=== PATIENT | male | born 1980 | race Hispanic/Latino ===

== ENCOUNTER 2018-12-05 19:13 | Inpatient (IN) | payer OTHER ==
[~2018-12-05] VITALS: Ht 175.3 cm; Wt 112.9 kg
[~2018-12-05 19:13] MED LIST: TYL3 PO
[2018-12-05 20:11] LABS: BASOPHILS % (AUTO) 0.6 % (0.0-5.0); EOSINOPHILS % (AUTO) 0.7 % (0.0-8.0); HEMATOCRIT 37.3 % (42-54); LYMPHOCYTES % (AUTO) 12.8 % (21.0-51.0); MEAN CORPUSCULAR HGB CONC 34.7 g/dL (32.0-36.0); MEAN CORPUSCULAR VOLUME 89.2 fL (79-99); MONOCYTES % (AUTO) 6.8 % (3.0-13.0); NEUTROPHILS % (AUTO) 79.1 % (40.0-77.0); PLATELET COUNT (AUTO) 206 K/uL (130-400); RED BLOOD CELL COUNT(AUTO) 4.18 MIL/uL (4.50-6.20); RED CELL DISTRIBUTION WIDTH 14.4 % (11.0-15.5); WHITE BLOOD COUNT (AUTO) 15.3 K/uL (4.8-10.8)
[2018-12-05 20:22] LABS: POTASSIUM 3.4 mmol/L (3.5-5.1)
[2018-12-05 20:23] LABS: INR 0.99 (0.85-1.15); PARTIAL THROMBOPLASTIN TIME 28.3 SEC (26.3-35.5); PROTHROMBIN TIME 10.4 SEC (9.6-11.6)
[2018-12-05 20:32] LABS: ALBUMIN 3.7 g/dL (3.5-5.0); BILIRUBIN,TOTAL 1.5 mg/dL (0.2-1.0); TOTAL PROTEIN, SERUM 8.3 g/dL (6.0-8.3)
[2018-12-05] MEDS ORDERED: SODIUM CHLORIDE 0.9% 1000ML 1,000 ML IV SCH (21:14)
[2018-12-05] MEDS ORDERED: ONDANSETRON HCL 4 MG/2 ML VIAL IV PRN (21:15)
[2018-12-05] MEDS ORDERED: ACETAMINOPHEN 325 MG TAB PO PRN (21:15)
[2018-12-05] MEDS ORDERED: NITROGLYCERIN 0.4 MG SL TAB SL PRN (21:15)
[2018-12-05] MEDS ORDERED: ACETAMINOPHEN-CODEINE 300/30MG TAB PO PRN (21:15)
[2018-12-05] MEDS ORDERED: POTASSIUM CHLORIDE 20MEQ/100ML 100 ML IV PRN (21:30)
[2018-12-05] MEDS ORDERED: LIDOCAINE HCL-MPF 1% 2ML VIAL IVP PRN (21:30)
[2018-12-05] MEDS ORDERED: POTASSIUM CHLORIDE 10% ELIXIR 20 MEQ/15 ML UDCUP PO PRN (21:30)
[2018-12-05] MEDS ORDERED: POTASSIUM CHLORIDE 20 MEQ ERTAB PO PRN (21:30)
[2018-12-05 21:44] LABS: APPEARANCE,URINE CLOUDY (CLEAR); BILIRUBIN,URINE NEGATIVE (NEGATIVE); COLOR,URINE YELLOW (YELLOW); GLUCOSE, URINE (UA) 250 mg/dL (NEGATIVE); KETONES,URINE NEGATIVE (NEGATIVE); LEUKOCYTE ESTERASE ,URINE MODERATE (NEGATIVE); NITRATE,URINE NEGATIVE (NEGATIVE); OCCULT BLOOD,URINE MODERATE (NEGATIVE); PROTEIN,URINE 30 mg/dL (NEGATIVE); UROBILINOGEN,URINE 0.2 mg/dL (0.2-1.0)
[2018-12-05 21:51] LABS: BACTERIA,URINE Moderate /HPF (None Seen); WBC,URINE 26-50 /HPF (0-1)
[2018-12-05 21:52] LABS: SQUAMOUS EPITHELIAL CELL,UR Rare /HPF (0-2)
[2018-12-05] MEDS ORDERED: POTASSIUM CHLORIDE 20 MEQ ERTAB PO ONE (22:13)
[2018-12-05] MEDS ORDERED: ACETAMINOPHEN-CODEINE 300/30MG TAB ONE (22:23)
[2018-12-05] MEDS ORDERED: NITROGLYCERIN 0.4 MG SL TAB SL ONE (22:49)
[2018-12-05 23:00] VITALS: BP 144/74
--- NOTE | 2018-12-05 23:04 | NUR ---
NOTE PATIENT ARRIVED FROM ED. SPOUSE ACCOMPANYING.
[2018-12-05 23:15] LABS: CREATINE KINASE, TOTAL 181 U/L (21-232); MYOGLOBIN 117 ng/mL (10-92); TROPONIN I < 0.04 ng/mL (0.00-0.06)
[2018-12-05] MEDS: MORPHINE SULFATE 2 MG/ML 1ML SYG IV PRN (23:30)
[2018-12-06] MEDS ORDERED: ASPI-1181 PO (00:04)
[2018-12-06] MEDS ORDERED: CARV12.511 PO (00:04)
[2018-12-06] MEDS ORDERED: TYL3B PO (00:08)
[2018-12-06] MEDS ORDERED: FURO20TA4 PO (00:08)
[2018-12-06] MEDS ORDERED: LOSA50TA64 PO (00:08)
[2018-12-06] MEDS ORDERED: SPIR25TA6 PO (00:08)
[2018-12-06] MEDS ORDERED: SIMV20TA6 PO (00:10)
[2018-12-06] MEDS ORDERED: TAMS-1 PO (00:10)
[2018-12-06] MEDS ORDERED: METFORMIN (00:12)
[2018-12-06] MEDS ORDERED: ACETAMINOPHEN-CODEINE 300/30MG TAB PO PRN (00:45)
--- NOTE | 2018-12-06 00:45 | NUR ---
NOTE NOTIFIED Heydi TORRESP OF HOME MEDS LIST READY FOR REVIEW AND PATIENT BEING DIABETIC, BUT HAS NOT TAKEN METFORMIN FOR A LONG WHILE.
[2018-12-06 04:00] VITALS: BP 136/68
[2018-12-06 04:39] LABS: BASOPHILS % (AUTO) 0.4 % (0.0-5.0); EOSINOPHILS % (AUTO) 0.7 % (0.0-8.0); HEMATOCRIT 36.5 % (42-54); LYMPHOCYTES % (AUTO) 17.8 % (21.0-51.0); MEAN CORPUSCULAR HGB CONC 35.1 g/dL (32.0-36.0); MEAN CORPUSCULAR VOLUME 91.2 fL (79-99); MONOCYTES % (AUTO) 9.3 % (3.0-13.0); NEUTROPHILS % (AUTO) 71.8 % (40.0-77.0); PLATELET COUNT (AUTO) 166 K/uL (130-400); RED CELL DISTRIBUTION WIDTH 14.4 % (11.0-15.5); WHITE BLOOD COUNT (AUTO) 12.4 K/uL (4.8-10.8)
[2018-12-06 05:17] LABS: CREATINE KINASE, TOTAL 144 U/L (21-232); MYOGLOBIN 70 ng/mL (10-92); TROPONIN I < 0.04 ng/mL (0.00-0.06)
[2018-12-06 07:24] VITALS: BP 133/84
--- NOTE | 2018-12-06 08:28 | NUR ---
ANA PEREZ MD REGARDING CONSULT. AWAITING CALLBACK.
[2018-12-06] MEDS: FUROSEMIDE 20 MG TABLET PO SCH (09:47)
[2018-12-06] MEDS: TAMSULOSIN HCL 0.4 MG CAP.ER.24H PO SCH (09:47)
[2018-12-06] MEDS: LOSARTAN 50 MG TABLET PO SCH (09:47)
[2018-12-06] MEDS: SPIRONOLACTONE 25 MG TAB PO SCH (09:47)
[2018-12-06] MEDS: FAMOTIDINE 20MG TAB 20 MG TAB PO SCH ×2 (09:48→19:48)
[2018-12-06] MEDS: ENOXAPARIN SODIUM 30 MG/0.3 ML SQ SCH (09:48)
[2018-12-06] MEDS: CARVEDILOL 12.5 MG TABLET PO SCH ×2 (09:48→19:48)
[2018-12-06] MEDS: ASPIRIN 81 MG EC TAB PO SCH (09:48)
--- NOTE | 2018-12-06 11:14 | NUR ---
[facility] CM met with pt and spouse discussed dc plans. Pt is independent, lives at home with spouse and children. Denies any equipments/services. Pt feels safe to go back home, still drives, spouse able to assist with transportation and needs as necessary. Pt is a self pay, [employer] assisting. DC plan to home once stable. CM to cont to follow up. Addendum: 12/06/18 at 1115 by ISAÍAS CHAVEZ LVN CM Amended: Links added.
[2018-12-06] MEDS ORDERED: CEFTRIAXONE SODIUM 500 MG VIAL IV SCH (11:15)
[2018-12-06 11:25] LABS: ALANINE AMINOTRANSFERASE 32 U/L (12-78); ALBUMIN 3.5 g/dL (3.5-5.0); ASPARTATE AMINOTRANSFERASE 19 U/L (10-37); BILIRUBIN,TOTAL 1.6 mg/dL (0.2-1.0); CARBON DIOXIDE 28 mmol/L (21-32); CHLORIDE 97 mmol/L (101-111); CREATINE KINASE, TOTAL 176 U/L (21-232); CREATININE 1.1 mg/dL (0.5-1.5); GLOMERULAR FILTR. RATE CALC 79 mL/min (>60); GLUCOSE,RANDOM 300 mg/dL (70-105); MYOGLOBIN 89 ng/mL (10-92); POTASSIUM 4.7 mmol/L (3.5-5.1); SODIUM SERUM 131 mmol/L (136-145); TOTAL PROTEIN, SERUM 7.8 g/dL (6.0-8.3); TROPONIN I < 0.04 ng/mL (0.00-0.06); UREA NITROGEN, BLOOD 17 mg/dL (7-18)
[2018-12-06] MEDS ORDERED: GLUCAGON 1MG KIT 1 MG ML IM PRN (11:45)
[2018-12-06] MEDS ORDERED: DEXTROSE 50%-WATER 50 ML DISP.SYRIN IV PRN (11:45)
[2018-12-06 11:55] VITALS: BP 134/78
--- NOTE | 2018-12-06 12:00 | NUR ---
DR. BONILLA SPOKE TO MD VIA TELEPHONE, MD AWARE OF CONSULT.
[2018-12-06] MEDS ORDERED: CEFTRIAXONE SODIUM 1 GM ONE (12:09)
[2018-12-06] MEDS ORDERED: INSULIN HUMULIN R 100 UNIT/ML 3ML ONE (12:10)
--- NOTE | 2018-12-06 12:30 | NUR ---
CARDIOLOGY CONSULT PAGED [facility] DR. HOWARD DILL REGARDING CONSULT. CALLED [facility]IN[facility] TO PAGE MD REGARDING CONSULT.
--- NOTE | 2018-12-06 14:15 | NUR ---
MD HERE TO SEE PATIENT. DR. BONILLA REPORTS THAT PATIENT WILL NEED PROCEDURE FOR KIDNEY STONE REMOVAL BUT PATIENT NEEDS CARDIAC CLEARANCE FIRST. DR. BONILLA REPORTS THAT PATIENTS CARDIAC STATUS NEEDS TO BE EVALUATED AND NO UROLOGY PROCEDURES WILL BE DONE UNLESS PATIENT "BECOMES SEPTIC." DR. BONILLA SPOKE TO RON GILLILAND FROM HEART CLINIC REGARDING PATIENT STATUS.
--- NOTE | 2018-12-06 14:30 | NUR ---
DR. HOWARD DILL MD HERE TO SEE PATIENT. INFORMED MD THAT DR. BONILLA NEEDS CARDIAC CLEARANCE FOR ANY PLANNED PROCEDURE. DR. HOWARD DILL REPLIED THAT DR. GUZMAN WOULD BE HERE TOMORROW 12/07/18. PATIENT SEES DR. GUZMAN AN OUTPATIENT.
[2018-12-06 16:09] VITALS: BP 126/80
[2018-12-06] MEDS: INSULIN HUMULIN R 100 UNIT/ML 3ML SQ SCH ×2 (17:17→21:21)
[2018-12-06] MEDS: SIMVASTATIN 20 MG TABLET PO SCH (19:48)
[2018-12-06 20:00] VITALS: BP 146/70
[2018-12-06] MEDS: MORPHINE SULFATE 2 MG/ML 1ML SYG IV PRN (21:14)
[2018-12-07] VITALS (10 sets, daily range): BP systolic 114–148; BP diastolic 67–99
[2018-12-07 04:26] LABS: HEMATOCRIT 37.5 % (42-54); MEAN CORPUSCULAR HEMOGLOBIN 31.4 pg (27.0-33.0); MEAN CORPUSCULAR HGB CONC 34.6 g/dL (32.0-36.0); MEAN CORPUSCULAR VOLUME 90.8 fL (79-99); PLATELET COUNT (AUTO) 206 K/uL (130-400); RED BLOOD CELL COUNT(AUTO) 4.12 MIL/uL (4.50-6.20); RED CELL DISTRIBUTION WIDTH 14.8 % (11.0-15.5); WHITE BLOOD COUNT (AUTO) 8.3 K/uL (4.8-10.8)
[2018-12-07 04:34] LABS: CREATININE 0.9 mg/dL (0.5-1.5); POTASSIUM 4.1 mmol/L (3.5-5.1)
[2018-12-07 04:42] LABS: B-TYPE NATRIURETIC PEPTIDE 167 pg/mL (0-100)
[2018-12-07] MEDS: INSULIN HUMULIN R 100 UNIT/ML 3ML SQ SCH ×3 (06:18→16:30)
[2018-12-07] MEDS: ENOXAPARIN SODIUM 30 MG/0.3 ML SQ SCH (09:00)
[2018-12-07] MEDS: FAMOTIDINE 20MG TAB 20 MG TAB PO SCH ×2 (09:00→20:35)
[2018-12-07] MEDS ORDERED: CEFTRIAXONE SODIUM 1 GM IV SCH ×2 (09:00→10:38)
[2018-12-07] MEDS: SPIRONOLACTONE 25 MG TAB PO SCH (09:00)
[2018-12-07] MEDS: FUROSEMIDE 20 MG TABLET PO SCH (09:00)
[2018-12-07] MEDS: ASPIRIN 81 MG EC TAB PO SCH (09:00)
[2018-12-07] MEDS: TAMSULOSIN HCL 0.4 MG CAP.ER.24H PO SCH (09:00)
[2018-12-07] MEDS: LOSARTAN 50 MG TABLET PO SCH (10:27)
[2018-12-07] MEDS: CARVEDILOL 12.5 MG TABLET PO SCH ×2 (10:27→20:36)
[2018-12-07] MEDS ORDERED: REGADENOSON 0.4 MG/5 ML PF SYG IVP SCH (11:15)
--- NOTE | 2018-12-07 15:59 | NUR ---
Nutrition Intervention: Nutrition consult due to pt. on fluid restriction. Pt. admitted with Dx of Chest pain, R/O Kidney Stones. Pt. NPO for procedure. Pt. previously on 2gm Na 75gm CCD diet with 25-75% p.o. intake as noted in EMR. Labs reviewed(Alb 3.5). LBM: 12/05/18. SR-21, elastic. BMI: 37.3, Obesity Grade 2. Pt. educated on Low Sodium Diabetic diet and provided with education material. Pt. verbalized understanding. Recommendations: 1) When feasible, rec. resume 2gm Na 75gm CCD diet. 2) Low Sodium Diabetic diet education given to patient. 3) Continue to monitor pt's nutritional status. 4) Consult RD as nutrition concerns arise. Addendum: 12/07/18 at [address] Amended: Links added.
[2018-12-07] MEDS: SIMVASTATIN 20 MG TABLET PO SCH (20:35)
[2018-12-08 03:25] VITALS: BP 125/65
[2018-12-08] MEDS: INSULIN HUMULIN R 100 UNIT/ML 3ML SQ SCH (06:24)
[2018-12-08 08:00] VITALS: BP 137/64
[2018-12-08] MEDS: TAMSULOSIN HCL 0.4 MG CAP.ER.24H PO SCH (09:21)
[2018-12-08] MEDS: ASPIRIN 81 MG EC TAB PO SCH (09:21)
[2018-12-08] MEDS: CARVEDILOL 12.5 MG TABLET PO SCH (09:21)
[2018-12-08] MEDS: SPIRONOLACTONE 25 MG TAB PO SCH (09:21)
[2018-12-08] MEDS: FAMOTIDINE 20MG TAB 20 MG TAB PO SCH (09:22)
[2018-12-08] MEDS: FUROSEMIDE 20 MG TABLET PO SCH (09:22)
[2018-12-08] MEDS: LOSARTAN 50 MG TABLET PO SCH (09:22)
[2018-12-08] MEDS: ENOXAPARIN SODIUM 30 MG/0.3 ML SQ SCH (09:22)
[2018-12-08 10:57] VITALS: BP 137/71
[2018-12-08 12:06] VITALS: BP 130/74
[2018-12-08] MEDS ORDERED: SULF1TAB42 PO (12:48)
== END 2018-12-08 14:00 | disposition home or self-care (01) | DRG 690 ==
LOC: EDH 19:13 → OBSVTOIN 19:14 → EDHIP 19:14 → 4BH 21:56
PROVIDERS: ADMIT Internal Medicine; ATTEND Internal Medicine
DX: N13.6 Pyonephrosis (principal); E87.1 Hypo-osmolality and hyponatremia; I42.0 Dilated cardiomyopathy; E87.6 Hypokalemia; I11.0 Hypertensive heart disease with heart failure; E11.65 Type 2 diabetes mellitus with hyperglycemia; E78.5 Hyperlipidemia, unspecified; I25.10 Atherosclerotic heart disease of native coronary artery without angina pectoris; I50.9 Heart failure, unspecified; I25.5 Ischemic cardiomyopathy; E66.01 Morbid (severe) obesity due to excess calories; I25.2 Old myocardial infarction; Z79.899 Other long term (current) drug therapy; Z83.3 Family history of diabetes mellitus; Z87.891 Personal history of nicotine dependence; Z95.0 Presence of cardiac pacemaker; Z68.36 Body mass index [BMI] 36.0-36.9, adult
CPT/HCPCS: 36415; 71045; 74176; 78452; 80048; 80053; 81001; 82550; 82948; 83874; 83880; 84484; 85025; 85027; 85610; 85730; 87077; 87088; 87186; 93005; 93017; 93306; 96374; A4218; A9500; G0378; J0696; J1650; J1815; J2785

== ENCOUNTER 2019-05-03 07:22 | Observation (INO) | payer MEDICAID, SELFPAY ==
[2019-05-02 16:08] LABS: BASOPHILS % (AUTO) 0.7 % (0.0-5.0); EOSINOPHILS % (AUTO) 1.6 % (0.0-8.0); HEMATOCRIT 41.4 % (42-54); LYMPHOCYTES % (AUTO) 27.5 % (21.0-51.0); MEAN CORPUSCULAR HEMOGLOBIN 32.9 pg (27.0-33.0); MEAN CORPUSCULAR VOLUME 94.1 fL (79-99); MONOCYTES % (AUTO) 4.9 % (3.0-13.0); NEUTROPHILS % (AUTO) 65.3 % (40.0-77.0); PLATELET COUNT (AUTO) 257 K/uL (130-400); RED CELL DISTRIBUTION WIDTH 13.2 % (11.0-15.5); WHITE BLOOD COUNT (AUTO) 11.2 K/uL (4.8-10.8)
[2019-05-02 16:20] LABS: INR 0.99 (0.85-1.15); PARTIAL THROMBOPLASTIN TIME 27.8 SEC (26.3-35.5); PROTHROMBIN TIME 10.4 SEC (9.6-11.6)
[2019-05-02 16:22] LABS: CREATININE 1.3 mg/dL (0.5-1.5); POTASSIUM 3.8 mmol/L (3.5-5.1)
--- NOTE | 2019-05-02 18:09 | NUR ---
OG DUPREE NOTIFIED DR. FRANCO OF ABNORMAL LABS, NEW ORDERS RECEIVED.
[2019-05-02 18:39] VITALS: BP 139/69
[~2019-05-03] VITALS: Ht 177.8 cm; Wt 120.2 kg
[2019-05-03] VITALS (12 sets, daily range): BP systolic 109–140; BP diastolic 59–81
[~2019-05-03 07:22] MED LIST changes: +ASPI-1181 PO; +CARV12.511 PO; +CEFAZOLIN SODIUM 1 GM VIAL IVP SCH; +FURO20TA4 PO; +LOSA50TA64 PO; +NOVOLIN SQ; +SIMV20TA6 PO; +SPIR25TA6 PO; +TAMS-1 PO; -TYL3 PO
[2019-05-03 07:37] LABS: BASOPHILS % (AUTO) 0.7 % (0.0-5.0); EOSINOPHILS % (AUTO) 2.3 % (0.0-8.0); HEMATOCRIT 43.6 % (42-54); LYMPHOCYTES % (AUTO) 28.1 % (21.0-51.0); MEAN CORPUSCULAR HEMOGLOBIN 33.1 pg (27.0-33.0); MEAN CORPUSCULAR HGB CONC 34.8 g/dL (32.0-36.0); MEAN CORPUSCULAR VOLUME 95.1 fL (79-99); MONOCYTES % (AUTO) 6.3 % (3.0-13.0); NEUTROPHILS % (AUTO) 62.6 % (40.0-77.0); NUCLEATED RED BLOOD CELLS 0.1 % (0.0-0.19); PLATELET COUNT (AUTO) 242 K/uL (130-400); RED BLOOD CELL COUNT(AUTO) 4.58 MIL/uL (4.50-6.20); RED CELL DISTRIBUTION WIDTH 13.1 % (11.0-15.5); WHITE BLOOD COUNT (AUTO) 9.2 K/uL (4.8-10.8)
[2019-05-03] MEDS: SODIUM CHLORIDE 0.9% 1000ML 1,000 ML IV SCH ×2 (07:56→15:46)
[2019-05-03] MEDS ORDERED: MIDAZOLAM HCL 1 MG/ML 2ML VIAL ONE ×4 (08:42→10:11)
[2019-05-03] MEDS ORDERED: MEPERIDINE-PF 25 MG/ML SYG ONE ×5 (08:42→10:29)
[2019-05-03] MEDS ORDERED: CEFAZOLIN SODIUM 1 GM VIAL ONE (08:42)
[2019-05-03] MEDS ORDERED: BUPIVACAINE/PF 0.25% 50ML VIAL IJ ONE (08:42)
[2019-05-03] MEDS ORDERED: LIDOCAINE HCL 1% MDV 50ML VIAL ONE (08:44)
[2019-05-03] MEDS ORDERED: IODIXANOL 320 MG/ML 100 ML VIAL ONE (08:46)
[2019-05-03] MEDS: ACETAMINOPHEN-CODEINE 300/30MG TAB PO PRN ×2 (14:48→20:05)
[2019-05-03] MEDS: FUROSEMIDE 20 MG TABLET PO SCH (16:25)
[2019-05-03] MEDS ORDERED: GLUCAGON 1MG KIT 1 MG ML IM PRN (16:30)
[2019-05-03] MEDS: INSULIN HUMULIN R 100 UNIT/ML 3ML SQ SCH ×2 (16:30→21:45)
[2019-05-03] MEDS ORDERED: DEXTROSE 50%-WATER 50 ML DISP.SYRIN IV PRN (16:30)
[2019-05-03] MEDS ORDERED: NPH,100V11 SQ (19:59)
[2019-05-03] MEDS: CARVEDILOL 12.5 MG TABLET PO SCH (20:01)
[2019-05-03] MEDS ORDERED: SIMVASTATIN 20 MG TABLET PO SCH (21:00)
[2019-05-03] MEDS ORDERED: FUROSEMIDE 20 MG TABLET PO SCH (21:00)
--- NOTE | 2019-05-03 21:10 | NUR ---
Pt. remained stable, instructed to use call light for assistance due meds were given.ALONZO Toledo here and saw the pt.No new order received.
[2019-05-03] MEDS: INSULIN NPH 100 UNIT/ML 3ML SQ SCH (21:44)
[2019-05-04 04:07] LABS: BASOPHILS % (AUTO) 0.5 % (0.0-5.0); EOSINOPHILS % (AUTO) 2.4 % (0.0-8.0); HEMATOCRIT 39.7 % (42-54); LYMPHOCYTES % (AUTO) 35.7 % (21.0-51.0); MEAN CORPUSCULAR VOLUME 94.4 fL (79-99); MONOCYTES % (AUTO) 6.7 % (3.0-13.0); NEUTROPHILS % (AUTO) 54.7 % (40.0-77.0); PLATELET COUNT (AUTO) 215 K/uL (130-400); RED CELL DISTRIBUTION WIDTH 13.2 % (11.0-15.5); WHITE BLOOD COUNT (AUTO) 8.6 K/uL (4.8-10.8)
[2019-05-04 04:26] LABS: CREATININE 0.8 mg/dL (0.5-1.5); POTASSIUM 3.9 mmol/L (3.5-5.1)
[2019-05-04 04:44] VITALS: BP_SYST 104; BP_SYST 124; BP_DIAS 52; BP_DIAS 77
[2019-05-04] MEDS: INSULIN HUMULIN R 100 UNIT/ML 3ML SQ SCH (05:58)
[2019-05-04 07:25] VITALS: BP 142/68
--- NOTE | 2019-05-04 07:45 | NUR ---
AM ASSESSMENT PT SITTING IN CARDIAC RECLINER, WATCHING TV. SPOUSE @ BEDSIDE. A/O X 3. NO SOB. NO DISTRESS NOTED. DENIES CHEST PAIN OR DISCOMFORT. DENIES PALPITATIONS. DENIES INCISIONAL PAIN @ THIS TIME. TELE: PACED. LT UPPER CHEST DSG DRY & INTACT. NO BLEEDING, NO HEMATOMA NOTED. SLING TO LT ARM. ARM PRECAUTIONS REVIEWED & REINFORCED. DENIES N/V AND/OR DIARRHEA. UP AD SHERRILL. INSTRUCTED TO CALL FOR ASSISTANCE. CALL MENG W/IN REACH.
[2019-05-04 08:35] VITALS: BP 142/68
[2019-05-04] MEDS: CARVEDILOL 12.5 MG TABLET PO SCH (08:35)
[2019-05-04] MEDS: FUROSEMIDE 20 MG TABLET PO SCH (08:36)
[2019-05-04] MEDS: INSULIN NPH 100 UNIT/ML 3ML SQ SCH (08:38)
[2019-05-04] MEDS ORDERED: LOSARTAN 50 MG TABLET PO SCH (09:00)
[2019-05-04] MEDS ORDERED: ASPIRIN 81 MG EC TAB PO SCH (09:00)
[2019-05-04] MEDS ORDERED: TAMSULOSIN HCL 0.4 MG CAP.ER.24H PO SCH ×2 (09:00→21:00)
[2019-05-04] MEDS ORDERED: SPIRONOLACTONE 25 MG TAB PO SCH (09:00)
[2019-05-04] MEDS: ACETAMINOPHEN-CODEINE 300/30MG TAB PO PRN (09:37)
--- NOTE | 2019-05-04 10:00 | NUR ---
DISCHARGE VERBAL & WRITTEN DISCHARGE INSTRUCTIONS REVIEWED & GIVEN TO PT. QUESTIONS ENCOURAGED CLARIFIED. PROPER CARE & ACTIVITY AFTER BiV ICD UPGRADE REVIEWED. NEW PRESCRIBED MEDICATION REVIEWED. PRESCRIPTION GIVEN TO PT. SIGNED COPY OF PRESCRIPTION PLACED IN CHART. TELE GEMA REMOVED. IV DISCONTINUED. PT & SPOUSE TO GATHER PERSONAL BELONGINGS. WILL NOTIFY STAFF WHEN READY TO BE TAKEN TO PRIVATE VEHICLE.
--- NOTE | 2019-05-04 10:10 | NUR ---
DISCHARGE PT AMBULATED TO PRIVATE VEHICLE ACCOMPANIED BY MYSELF, Clemente PATRICK RN, AND PT'S SPOUSE. TOLERATED WELL.
== END 2019-05-04 10:10 | disposition home or self-care (01) ==
LOC: DAH 07:22 → 2DH 07:23 → DAH 07:23
PROVIDERS: ADMIT Internal Medicine; ATTEND Internal Medicine
DX: I44.2 Atrioventricular block, complete (principal); E11.9 Type 2 diabetes mellitus without complications; I11.0 Hypertensive heart disease with heart failure; I50.22 Chronic systolic (congestive) heart failure; I47.2 Ventricular tachycardia; J44.9 Chronic obstructive pulmonary disease, unspecified; I25.10 Atherosclerotic heart disease of native coronary artery without angina pectoris; F17.210 Nicotine dependence, cigarettes, uncomplicated; Z87.442 Personal history of urinary calculi; Z79.899 Other long term (current) drug therapy
CPT/HCPCS: 33225; 33249; 36415 ×3; 71045; 80048 ×2; 82948 ×4; 85025 ×3; 85610; 85730; 96372; A4215; A4216; A4221; A4222; A4223 ×3; A4606; C1769; C1882; C1895; C1900; G0378 ×23; J0690; J1815 ×3; J2175 ×5; J2250 ×4; J3490 ×2; J7030; Q9967; 99156; 99157